=== PATIENT | male | born 1985 | race Caucasian/White ===

== ENCOUNTER 2024-01-25 22:22 | Emergency (ER) | payer OTHER, SELFPAY ==
[2024-01-25 22:23] VITALS: BP 128/77; PULSE 106; RESP 15; TEMP 37.1; O2SAT 96; BMI 31.0
--- NOTE | 2024-01-25 22:32 | CT_ITS ---
STUDY: CTA CHEST REASON FOR EXAM: Male, 38 years old patient with dyspnea, thoracic back pain, and fevers. Left-sided parathoracic pain. RADIATION DOSAGE (If Supplied By Facility): CTDIvol = ( 17.11 ) mGy, DLP = ( 437.87 ) mGycm TECHNIQUE: The examination was performed with the intravenous administration of IV 100 mL of Isovue-370. Post-processing of the angiographic images was performed, with multiplanar reformation and 3D reconstruction. Individualized dose optimization techniques were used for this CT. COMPARISON: Prior comparison studies are not available for review at this time. FINDINGS: Cardiac monitoring leads are present. Normal enhancement of the main pulmonary artery and right and left pulmonary arteries. There is limited enhancement of the bilateral peripheral pulmonary arteries. There is no demonstrated pulmonary embolism. There is prominence of the main pulmonary arteries with peripheral pulmonary vascular congestion. Normal thoracic aorta and visualized great vessels. There is no demonstrated aortic dissection. There is borderline cardiac cardiomegaly. Normal mediastinum. Normal hilar regions. Normal visualized trachea and bronchi. There is lingular airspace consolidation or atelectasis. There is left lower lobe airspace disease atelectasis. There is also right lower lobe groundglass attenuation. Lungs are underexpanded. There is a calcified nodule within the left upper lobe that may representing a granuloma. There appears to be small left-sided pleural effusion. Normal chest wall structures. Normal osseous structures. Normal visualized upper abdomen. CT/CTA Chest W/WO Contrast IMPRESSION: 1. No CTA demonstrated pulmonary embolism or arterial dissection. 2. Borderline cardiomegaly and pulmonary congestion. 3. Left lower lobe airspace consolidation and lingular airspace consolidation and atelectasis suggest pneumonia. Electronically Signed: Jenelle Mcintosh MD at 1:09 EDT ,
--- NOTE | 2024-01-25 22:35 | EX.ED.DYSGE1 ---
HPI <Dr. Mohan Flores DO - Last Filed: 01/26/24 11:41> History of Present Illness Chief Complaint: Chest Other Informant: patient and spouse/S.O. Narrative Narrative: Presents for evaluation of upper thoracic pain along with dyspnea and fevers. Symptoms started 2 weeks ago with reported fever. 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 He had a recurrent fever 3 days ago. Pain radiates around his back to the left side. Reports dyspnea. Denies cough. Denies vomiting or diarrhea. Denies urinary symptoms. Denies any loss of bowel or bladder control. Denies any pain down the legs. Denies IV drug use history. Last fever symptoms 3 days ago no fever today. Took 2 Flexeril's and ibuprofen at 9 PM no relief. heating pad is helping with comfort. Pain worse with sitting. Denies any allergies. Reports back pain is worse than when he dislocated his shoulder. Prior similar symptoms: No PFSH <Dr. Mohan Flores DO - Last Filed: 01/26/24 11:41> PFSH Medical History Back pain Shoulder pain Home Medications ?Medication ?Instructions ?Recorded ?Last Taken ?Type ascorbic acid (vitamin C) 1,000 mg 5,000 mg PO DAILY 01/26/24 Unknown History tablet,extended release (C Complex) azithromycin 250 mg tablet 250 mg PO DAILY 4 days #4 tabs 01/26/24 Unknown Rx (Zithromax) cholecalciferol (vitamin D3) 125 125 mcg PO DAILY 01/26/24 Unknown History mcg (5,000 unit) capsule hydrocodone-acetaminophen 5-325mg 1 tab PO Q4H PRN PRN Pain 4 days 01/26/24 Unknown Rx 5mg-325mg #14 TABLETS Allergy/AdvReac Type Severity Reaction Status Date / Time No Known Allergies Allergy Verified 01/25/24 22:26 Surgical History H/O shoulder surgery Social History Smoking Status: Never smoker alcohol intake: current alcohol intake frequency: a few times a week ROS <Dr. Mohan Le, DO - Last Filed: 01/26/24 11:41> ROS ED Constitutional Constitutional ED: Reports fever(s); Denies chills or sweats Eyes Eyes: Denies change in vision ENT ENT ED: Denies dysphagia or sore throat Cardiovascular Cardiovascular: Denies chest pain, leg edema, palpitations or racing heartbeat Respiratory/Chest Respiratory/Chest: Reports dyspnea; Denies cough or dyspnea on exertion Gastrointestinal Gastrointestinal: Denies abdominal pain, diarrhea, nausea or vomiting Genitourinary Genitourinary ED: Denies dysuria, hematuria or urinary frequency Musculoskeletal Musculoskeletal: Reports back pain; Denies extremity pain or neck pain Integumentary Denies rash or wounds Neurologic Neurologic: Denies headache(s), paresthesias or weakness EXAM <Dr. Mohan Flores, DO - Last Filed: 01/26/24 11:41> Physical Exam Const Vital Signs: 01/25/24 22:23 01/25/24 22:47 01/26/24 00:23 Temperature 98.7 F Temperature Source Temporal Pulse Rate 106 H 71 Respiratory Rate 15 17 Respiratory Effort Normal Non-Labored Blood Pressure 128/77 H 103/60 Blood Pressure Mean 94 74 Pulse Ox 96 96 Oxygen Delivery Method Room Air Room Air 01/26/24 01:27 Temperature 98 F Temperature Source Pulse Rate 96 Respiratory Rate 19 H Respiratory Effort Blood Pressure 98/55 L Blood Pressure Mean 69 Pulse Ox 94 Oxygen Delivery Method Positive well nourished and well developed Constitutional Narrative: Standing secondary to position of comfort. General Appearance ED: well developed HEENT Reports moist mucous membranes normocephalic and atraumatic Eyes EOMs intact bilaterally and conjunctivae normal General Eye ED: Yes normal appearance of both eyes Neck no lymphadenopathy and supple General: Negative for tenderness Chest Wall inspection of chest normal and palpation of chest normal Chest: Negative for tenderness Resp normal respiratory effort and normal air movement Resp Narrative: Symmetric breath sounds Effort and Inspection: symmetric chest movement; Negative for respiratory distress Cardio regular rhythm and no murmurs Rate: tachycardic Peripheral Pulses: pulses 2+ throughout GI normal to inspection, nondistended, normoactive bowel sounds and non-tender Palpation: Negative for guarding or rebound tenderness present Back/Spine no CVA tenderness Back/Spine Narrative: Tender palpation. Mid thoracic to the left side. There is erythema across his upper mid back for where heating pad was. Extremity normal to inspection General Extremety ED: Negative for edema or tenderness General Extremity: Negative for edema Neuro oriented x3 and no sensory deficits noted Sensorium / Orientation: awake and alert Skin Skin Narrative: No vesicular lesions noted in the back. <Dr. Jose Alberto Becerra MD - Last Filed: 01/26/24 01:26> Physical Exam Const Vital Signs: 01/25/24 22:23 01/25/24 22:47 01/26/24 00:23 Temperature 98.7 F Temperature Source Temporal Pulse Rate 106 H 71 Respiratory Rate 15 17 Respiratory Effort Normal Non-Labored Blood Pressure 128/77 H 103/60 Blood Pressure Mean 94 74 Pulse Ox 96 96 Oxygen Delivery Method Room Air Room Air 01/26/24 01:27 Temperature 98 F Temperature Source Pulse Rate 96 Respiratory Rate 19 H Respiratory Effort Blood Pressure 98/55 L Blood Pressure Mean 69 Pulse Ox 94 Oxygen Delivery Method MDM <Dr. Mohan Flores DO - Last Filed: 01/26/24 11:41> MDM MDM Narrative Medical decision making narrative: Interventions / MDM: Differential diagnosis: Diagnosis considered but do not suspect: My EKG interpretation: N/A Imaging independently reviewed and interpreted by myself: N/A External documents reviewed: N/A Test considered but not ordered:N/A ED course: Patient afebrile on arrival slight tachycardia. Reported fever. Denies IV drug use. Reports dyspnea due to pain. He is uncomfortable with movement. No cauda equina symptoms. Will check labs inflammatory markers and blood cultures with his reported fever. Will check CTA chest for evaluation of lungs along with thoracic spine region. Morphine ordered for pain control. Signed out to Dr. Becerra Re-evaluation: stable Disposition discussed with patient/family/significant other: patient and family. Case discussed with consulting clinician: N/A This note was generated with Bday dictation software. It may contain incorrect words, spelling, and punctuation that were not noted in checking the note before signing. Patient turned over to me from the afternoon physician Dr. Mohan Chamorro. He denied wanting and discussed with the patient the transfer of care and I reexamined the patient which is benign at this time. He has normal strength. Is mild redness to his back where he had a heating pad. Heart and lungs and abdomen are all benign. I will check his lab results and his imaging. Reassessed the patient. He has been given for morphine he still having pain and has had significant relief he will be given an additional 6 mg of morphine. Repeat exam patient doing well at 1 AM. His CAT scan of his chest recently returned and showed left lower lobe pneumonia with small pleural effusion. Patient's vital signs are stable. His pulse ox is 95% on room air. I discussed all test results with he and family. He is comfortable being discharged home and treated for pneumonia at home. His exam is unchanged. His pain is much better after second dose of morphine. The diagnosis and CAT scan are consistent with his history and physical findings. Patient started on Zithromax Z-Nam first dose given in the ER. Prescription sent to his pharmacy. Lab Data Labs: Laboratory Results - last 24 hr 01/25/24 22:40 WBC 17.9 H RBC 4.60 Hgb 13.2 Hct 39.0 L MCV 84.8 MCH 28.7 MCHC 33.8 RDW Std Deviation 36.5 RDW Coeff of Betsy 11.9 Plt Count 342 MPV 10.4 Immature Gran % (Auto) 0.800 Neut % (Auto) 87.7 H Lymph % (Auto) 4.6 L [place] % (Auto) 6.4 Eos % (Auto) 0.2 Baso % (Auto) 0.3 Absolute Neuts (auto) 15.7 H Absolute Lymphs (auto) 0.82 L Nucleated RBC % 0 ESR 27 H PT 15.5 H INR 1.2 APTT 29.6 Sodium 132 L Potassium 3.9 Chloride 98 Carbon Dioxide 27.0 Anion Gap 7 BUN 15 Creatinine 1.12 Estim Creat Clear Calc 103.85 Est GFR (MDRD) Af Amer 95 Est GFR (MDRD) Non-Af 79 BUN/Creatinine Ratio 13.4 Glucose 137 H Lactic Acid 1.2 Calcium 9.3 C-React Prot Ext Range 95.50 H Radiography Diagnostic Testing: Clinical Impression(s) from Imaging Studies Chest CTA 01/25/24 22:32 IMPRESSION: 1. No CTA demonstrated pulmonary embolism or arterial dissection. 2. Borderline cardiomegaly and pulmonary congestion. 3. Left lower lobe airspace consolidation and lingular airspace consolidation and atelectasis suggest pneumonia. Electronically Signed: Jenelle Mcintosh MD at 1:09 EDT , <Dr. Jose Alberto Becerra MD - Last Filed: 01/26/24 01:26> MDM MDM Narrative Medical decision making narrative: Interventions / MDM: Differential diagnosis: Diagnosis considered but do not suspect: My EKG interpretation: N/A Imaging independently reviewed and interpreted by myself: N/A External documents reviewed: N/A Test considered but not ordered:N/A ED course: Patient afebrile on arrival slight tachycardia. Reported fever. Denies IV drug use. Reports dyspnea due to pain. He is uncomfortable with movement. No cauda equina symptoms. Will check labs inflammatory markers and blood cultures with his reported fever. Will check CTA chest for evaluation of lungs along with thoracic spine region. Morphine ordered for pain control. Re-evaluation: stable Disposition discussed with patient/family/significant other: Case discussed with consulting clinician: N/A This note was generated with Bday dictation software. It may contain incorrect words, spelling, and punctuation that were not noted in checking the note before signing. Patient turned over to me from the afternoon physician Dr. Mohan Chamorro. He denied wanting and discussed with the patient the transfer of care and I reexamined the patient which is benign at this time. He has normal strength. Is mild redness to his back where he had a heating pad. Heart and lungs and abdomen are all benign. I will check his lab results and his imaging. Reassessed the patient. He has been given for morphine he still having pain and has had significant relief he will be given an additional 6 mg of morphine. Repeat exam patient doing well at 1 AM. His CAT scan of his chest recently returned and showed left lower lobe pneumonia with small pleural effusion. Patient's vital signs are stable. His pulse ox is 95% on room air. I discussed all test results with he and family. He is comfortable being discharged home and treated for pneumonia at home. His exam is unchanged. His pain is much better after second dose of morphine. The diagnosis and CAT scan are consistent with his history and physical findings. Patient started on Zithromax Z-Nam first dose given in the ER. Prescription sent to his pharmacy. Lab Data Attestation: I reviewed the patient's lab results. Lab results narrative: CBC is elevated with white count 17.9. H&H 13 and 39. Platelets 342. Sed rate is elevated at 27. His CRP is elevated at 95. PT/INR 15 and 1. PTT is 29. Electrolytes show a sodium of 132. Gap 7. Normal BUN of 15 creatinine 1.1. Glucose 137. Lactic acid is normal at 1.2. Labs: Laboratory Results - last 24 hr 01/25/24 22:40 WBC 17.9 H RBC 4.60 Hgb 13.2 Hct 39.0 L MCV 84.8 MCH 28.7 MCHC 33.8 RDW Std Deviation 36.5 RDW Coeff of Betsy 11.9 Plt Count 342 MPV 10.4 Immature Gran % (Auto) 0.800 Neut % (Auto) 87.7 H Lymph % (Auto) 4.6 L [place] % (Auto) 6.4 Eos % (Auto) 0.2 Baso % (Auto) 0.3 Absolute Neuts (auto) 15.7 H Absolute Lymphs (auto) 0.82 L Nucleated RBC % 0 ESR 27 H PT 15.5 H INR 1.2 APTT 29.6 Sodium 132 L Potassium 3.9 Chloride 98 Carbon Dioxide 27.0 Anion Gap 7 BUN 15 Creatinine 1.12 Estim Creat Clear Calc 103.85 Est GFR (MDRD) Af Amer 95 Est GFR (MDRD) Non-Af 79 BUN/Creatinine Ratio 13.4 Glucose 137 H Lactic Acid 1.2 Calcium 9.3 C-React Prot Ext Range 95.50 H Radiography Diagnostic Testing: Clinical Impression(s) from Imaging Studies Chest CTA 01/25/24 22:32 IMPRESSION: 1. No CTA demonstrated pulmonary embolism or arterial dissection. 2. Borderline cardiomegaly and pulmonary congestion. 3. Left lower lobe airspace consolidation and lingular airspace consolidation and atelectasis suggest pneumonia. Electronically Signed: Jenelle Mcintosh MD at 1:09 EDT , Discharge Plan Triage Chief Complaint: Chest Other ED Provider: Mohan Flores Dx/Rx/DC Orders Clinical Impression: Left lower lobe pneumonia, Pleurisy Instructions: ED Pleurisy, ED Pneumonia (Adult) Prescriptions: New azithromycin [Zithromax] 250 mg tablet 250 mg PO DAILY 4 Days Qty: 4 0RF Rx Instructions: start on day 2 of therapy hydrocodone-acetaminophen 5-325 mg tablet 1 tab PO Q4H PRN PRN (Reason: Pain) 4 Days Qty: 14 0RF No Action C Complex 1,000 mg tablet extended release 5,000 mg PO DAILY cholecalciferol (vitamin D3) 125 mcg (5,000 unit) capsule 125 mcg PO DAILY Primary Care Provider: Care Physician,No Primary Referrals: David Genao MD [Med Staff - Sexual Assault Counselor] - 3-5 Days if not improving Care Physician,No Primary [Primary Care Provider] - Activity Restrictions/Additional Instructions: You have a left lower lobe pneumonia. Plenty of fluids and rest. Off work next 3 days. Motrin and Tylenol for pain. Follow-up with a local physician to ensure you are improving. Return to the emergency department if you are feeling worse. You will be started on the antibiotic Zithromax which is typically used to treat pneumonia. First dose is 2 pills which you were given here. On Thursday you will start taking 1 pill a day for 4 more days. Print Language: Croatian Disposition Disposition: Home, Self Care Discharge Date/Time: 01/26/24 01:50
[2024-01-25] MEDS: 0.9% Normal Saline (500mL Bag) 500 ML 999 ML IV (22:48)
[2024-01-25] MEDS: Morphine 4 MG/ML Syringe IV (22:48)
[2024-01-25 23:03] LABS: Absolute Lymphocyte Count 0.82 X10^3/uL (0.83-4.51); Absolute Neutrophil Count 15.7 X10^3/uL (2.0-7.7); Basophil# 0.06 X10^3/uL; Basophil% 0.3 % (0-1); Eosinophil# 0.04 X10^3/uL; Eosinophils% 0.2 % (0-5); Hemoglobin 13.2 g/dL (13.0-16.5); Lymphocyte # 0.82 X10^3/ul (0.83-4.51); Lymphocyte % 4.6 % (19-41); Mean Corp Hgb Conc 33.8 g/dL (32-36); Mean Corpuscular Hgb 28.7 pg (27.0-32.0); Mean Corpuscular Volume 84.8 fL (80-94); Mean Platelet Vol. 10.4 fl (6.2-12.0); Monocyte# 1.15 X10^3/uL; Monocyte% 6.4 % (0-10); NRBC Flagged by Analyzer 0 % (0-5); Neutrophil # 15.65 X10^3/uL (2.7-7.7); Neutrophil % 87.7 % (47-70); Platelet Count 342 K/mm3 (150-450); RBC Distribution Width CV 11.9 % (11.6-14.6); RBC Distribution Width SD 36.5 fl (35.1-43.9); White Blood Count 17.9 K/mm3 (4.4-11.0)
[2024-01-25 23:06] LABS: International Normalized Ratio 1.2; Prothrombin Time (Protime)PT. 15.5 SECONDS (11.7-14.9)
[2024-01-25 23:08] LABS: Partial Thromboplast Time 29.6 Seconds (24.1-36.2)
[2024-01-25 23:14] LABS: Lactic Acid 1.2 mmol/L (0.4-1.9)
[2024-01-25 23:16] LABS: Anion Gap 7 (5-15); BUN 15 mg/dL (7-18); BUN/Creat Ratio 13.4 RATIO (10-20); Calcium,Total 9.3 mg/dL (8.5-10.1); Chloride 98 mmol/L (98-107); Creatinine, Serum 1.12 mg/dL (0.70-1.30); EST Glomerular Filtration Rate 79 mL/min (>60); Est Glom Filt Rate - Afr Amer 95 mL/min (>60); Estimated Creatinine Clearance 103.85 ml/min; Glucose 137 mg/dL (74-106); Potassium 3.9 mmol/L (3.5-5.1); Sodium Level 132 mmol/L (136-145)
[2024-01-25 23:19] LABS: Erythrocyte Sedimentation Rate 27 mm/hr (0-20)
[2024-01-25] MEDS: morphine 8 MG/ML Syringe 6 MG IV (23:25)
[2024-01-26 00:23] VITALS: BP 103/60; PULSE 71; RESP 17; O2SAT 96
[2024-01-26 01:27] VITALS: BP 98/55; PULSE 96; RESP 19; TEMP 36.6; O2SAT 94
[2024-01-26] MEDS: Azithromycin 250 MG Tablet 500 MG PO (01:29)
[2024-01-26] MEDS: Ketorolac 60 MG/2 ML Vial IM (01:45)
== END 2024-01-26 01:50 | disposition home or self-care (01) ==
PROVIDERS: Emergency Provider Emergency Medicine; Visit Provider Emergency Medicine
DX: J18.9 Pneumonia, unspecified organism (principal); R09.1 Pleurisy; Z79.899 Other long term (current) drug therapy
CPT/HCPCS: 71275; 80048; 83605; 85025; 85610; 85652; 85730; 86140; 87040; 96361; 96372; 96374; 96376; 99283; Q9967; A4216

== ENCOUNTER 2024-01-28 12:39 | Emergency (ER) | payer OTHER, SELFPAY ==
[2024-01-28 12:40] VITALS: BP 123/87; PULSE 101; RESP 20; TEMP 37.2; O2SAT 97; BMI 29.9
--- NOTE | 2024-01-28 13:39 | EDS_ITS ---
HPI History of Present Illness Chief Complaint: Shortness of Breath Informant: patient Narrative Narrative: Patient returns secondary to recent diagnosis of pneumonia and no significant proven symptoms. Patient was seen 3 days ago diagnosed with a left lower lobe pneumonia. He had a CTA of the chest that revealed no evidence of pulmonary embolism. He is currently on a Z-Nam as well as Soper for pain. He states his pain is significantly improved and he started coughing slightly last evening. He did note return of fever last night and this morning. He tried to follow-up with his primary care physician but they would not see him because he had not been there in more than a year. [facility] was then [facility] to [facility] and they would not see him and sent him to the emergency room. [facility] Medical History Back pain Shoulder pain Home Medications ?Medication ?Instructions ?Recorded ?Last Taken ?Type ascorbic acid (vitamin C) 1,000 mg 5,000 mg PO DAILY 01/26/24 Unknown History tablet,extended release (C Complex) azithromycin 250 mg tablet 250 mg PO DAILY 4 days #4 tabs 01/26/24 Unknown Rx (Zithromax) cholecalciferol (vitamin D3) 125 125 mcg PO DAILY 01/26/24 Unknown History mcg (5,000 unit) capsule hydrocodone-acetaminophen 5-325mg 1 tab PO Q4H PRN PRN Pain 4 days 01/26/24 Unknown Rx 5mg-325mg #14 TABLETS hydrocodone-acetaminophen 5-325mg 1 tab PO Q6H PRN PRN Pain 3 days 01/28/24 Unknown Rx 5mg-325mg #10 TABLETS levofloxacin 750 mg tablet 750 mg PO DAILY #4 tabs 01/28/24 Unknown Rx Allergy/AdvReac Type Severity Reaction Status Date / Time No Known Allergies Allergy Verified 01/28/24 12:40 Surgical History H/O shoulder surgery Social History Smoking Status: Never smoker alcohol intake: current alcohol intake frequency: a few times a week ROS ROS ED Constitutional Constitutional ED: Reports fever(s); Denies chills Eyes Eyes: Denies discharge from eye(s) ENT ENT ED: Denies discharge from eye(s), rhinorrhea or sore throat Cardiovascular Cardiovascular: Denies chest pain or palpitations Respiratory/Chest Respiratory/Chest: Reports cough and dyspnea Gastrointestinal Gastrointestinal: Denies abdominal pain, nausea or vomiting Genitourinary Genitourinary ED: Denies dysuria Musculoskeletal Musculoskeletal: Denies back pain or extremity pain Integumentary Denies Abrasions or rash Neurologic Neurologic: Denies headache(s) or weakness Psychiatric Psychiatric: Denies anxiety or depression Allergic/Immunologic Allergic/Immunologic ED: Denies lip swelling or urticaria EXAM Physical Exam Const Vital Signs: 01/28/24 12:40 01/28/24 13:49 01/28/24 13:54 Temperature 99 F 99 F Temperature Source Temporal Temporal Pulse Rate 101 H 73 Respiratory Rate 20 H 16 Respiratory Effort Short of Breath Respiratory Depth Normal Respiratory Pattern Normal Blood Pressure 123/87 H 128/79 H Blood Pressure Mean 99 95 Pulse Ox 97 99 Oxygen Delivery Method Room Air Room Air Room Air 01/28/24 15:11 Temperature Temperature Source Pulse Rate Respiratory Rate Respiratory Effort Respiratory Depth Respiratory Pattern Blood Pressure Blood Pressure Mean Pulse Ox Oxygen Delivery Method Room Air Positive well nourished and well developed General Appearance ED: well developed HEENT Reports moist mucous membranes Neck no lymphadenopathy Chest Wall inspection of chest normal and palpation of chest normal Resp normal respiratory effort and clear to auscultation bilaterally Cardio regular rate and regular rhythm GI non-tender Palpation: soft Extremity normal to inspection Neuro oriented x3 and no sensory deficits noted Motor Exam: strength 5/5 throughout Psych mental status grossly normal Skin no rashes or lesions noted MDM MDM MDM Narrative Medical decision making narrative: I did review records from patient's prior workup. Repeat chest x-ray will be obtained today to evaluate for progression or improvement of his infiltrate. Radiography Diagnostic Testing: Clinical Impression(s) from Imaging Studies Chest X-Ray 01/28/24 13:45 IMPRESSION: Consolidation in the left upper lobe as well as the lingular segment of the left upper lobe with blunting of the left costophrenic angle. Electronically Signed: Lokesh Marlow MD at 14:12 EDT , Treatment and Re-Evaluation :: 2 view chest x-ray per my interpretation reveals a large left-sided infiltrate. Radiology interpretation is reviewed and does document a consolidation left upper lobe as well as the lingular segment. With patient having been on antibiotics for several days already but now having recurrent fevers, I will switch him to Levaquin. EKG was obtained to evaluate QTc. EKG is sinus tach at 108 with a QTc of 447. No evidence of acute ischemia. Patient be given initial dose of Levaquin here and prescription will be sent to the pharmacy for him. He has not been hypoxic and is stable for outpatient treatment. Discharge Plan Triage Chief Complaint: Shortness of Breath Other Complaint: Meds Only ED Provider: Ary Vann Dx/Rx/DC Orders Clinical Impression: Pneumonia Instructions: ED Pneumonia (Adult) Prescriptions: New levofloxacin 750 mg tablet 750 mg PO DAILY Qty: 4 0RF hydrocodone-acetaminophen 5-325 mg tablet 1 tab PO Q6H PRN PRN (Reason: Pain) 3 Days Qty: 10 0RF No Action C Complex 1,000 mg tablet extended release 5,000 mg PO DAILY cholecalciferol (vitamin D3) 125 mcg (5,000 unit) capsule 125 mcg PO DAILY azithromycin [Zithromax] 250 mg tablet 250 mg PO DAILY 4 Days Qty: 4 0RF Rx Instructions: start on day 2 of therapy hydrocodone-acetaminophen 5-325 mg tablet 1 tab PO Q4H PRN PRN (Reason: Pain) 4 Days Qty: 14 0RF Primary Care Provider: Care Physician,No Primary Referrals: Sherry Middleton MD [Med Staff - Crawler Crane Operator] - 1 Week Care Physician,No Primary [Primary Care Provider] - Activity Restrictions/Additional Instructions: You have been given your initial dose of levofloxacin here. You will take 4 additional days at home with your next dose due tomorrow. Print Language: Montserratian Disposition Disposition: Home, Self Care
--- NOTE | 2024-01-28 13:45 | RAD_ITS ---
STUDY: X-RAY CHEST REASON FOR EXAM: Male, 38 years old. Pneumonia TECHNIQUE: PA and lateral views of the chest. COMPARISON: Comparison is made with prior CT scan of the thorax dated January 25, 2024. FINDINGS: Consolidation in left upper lobe and lingular segment of the left upper lobe. Blunting of the left costophrenic angle. Normal size heart. Normal mediastinum and anh. Normal visualized pulmonary arteries. Normal visualized aortic arch and descending thoracic aorta. Normal visualized thoracic spine. Normal visualized ribs, clavicles, and shoulders. There is no demonstrated abnormality of the visualized soft tissue structures of the upper abdomen. RAD/Chest PA and Lateral IMPRESSION: Consolidation in the left upper lobe as well as the lingular segment of the left upper lobe with blunting of the left costophrenic angle. Electronically Signed: Lokesh Marlow MD at 14:12 EDT ,
[2024-01-28 13:49] VITALS: BP 128/79; PULSE 73; RESP 16; TEMP 37.2; O2SAT 99
[2024-01-28 13:54] VITALS: O2SAT 99
--- NOTE | 2024-01-28 14:31 | EKG12_ITS ---
Test Reason : Blood Pressure : / mmHG Vent. Rate : 108 BPM Atrial Rate : 108 BPM P-R Int : 142 ms QRS Dur : 092 ms QT Int : 334 ms P-R-T Axes : 042 023 032 degrees QTc Int : 447 ms Sinus tachycardia Otherwise normal ECG Confirmed by EZEKIEL STORM, JALEEL ([id number]), offline editor BHARGAV LOPEZ ([id number]) on 02/01/2024 11:30:44 AM Referred By: Confirmed By:JALEEL FALCON MD
[2024-01-28] MEDS: levoFLOXacin 750 MG Tablet PO (15:13)
[2024-01-28 15:14] VITALS: BP 124/83; PULSE 95; RESP 18; TEMP 36.9; O2SAT 91
== END 2024-01-28 15:19 | disposition home or self-care (01) ==
PROVIDERS: Emergency Provider Emergency Medicine; Visit Provider Emergency Medicine
DX: J18.9 Pneumonia, unspecified organism (principal)
CPT/HCPCS: 71046; 93005; 99283

== ENCOUNTER → 2024-02-01 | Outpatient (CLI) | payer SELFPAY ==
[2024-02-01 16:51] LABS: Absolute Neutrophil Count 6.2 X10^3/uL (2.0-7.7); Basophil# 0.08 X10^3/uL; Basophil% 0.9 % (0-1); Eosinophil# 0.18 X10^3/uL; Lymphocyte % 18.7 % (19-41); Mean Corp Hgb Conc 32.5 g/dL (32-36); Mean Corpuscular Volume 86.2 fL (80-94); Monocyte# 0.78 X10^3/uL; Monocyte% 8.6 % (0-10); NRBC Flagged by Analyzer 0 % (0-5); Neutrophil # 6.22 X10^3/uL (2.7-7.7); Neutrophil % 68.5 % (47-70); Platelet Count 573 K/mm3 (150-450); RBC Distribution Width CV 11.9 % (11.6-14.6); RBC Distribution Width SD 37.5 fl (35.1-43.9); Red Blood Count 4.64 M/mm3 (4.6-6.2); White Blood Count 9.1 K/mm3 (4.4-11.0)
[2024-02-01 22:04] LABS: ALB/GLOB Ratio 0.6 RATIO (0.9-2.4); AST(SGOT) 22 U/L (15-37); Alanine Aminotransfer ALT/SGPT 42 U/L (16-61); Albumin, Serum 3.2 g/dL (3.2-5.0); Alkaline Phosphatase 100 U/L (45-117); Anion Gap 9 (5-15); BUN 11 mg/dL (7-18); BUN/Creat Ratio 9.6 RATIO (10-20); Chloride 101 mmol/L (98-107); Creatinine, Serum 1.15 mg/dL (0.70-1.30); EST Glomerular Filtration Rate 76 mL/min (>60); Est Glom Filt Rate - Afr Amer 92 mL/min (>60); Globulin 5.1 g/dL (2.2-4.2); Glucose 119 mg/dL (74-106); Protein, Total 8.3 g/dL (6.4-8.2); Sodium Level 137 mmol/L (136-145)
[2024-02-03 15:09] LABS: Mycoplasma Pneum AB IgG 243 U/mL (0-99); Mycoplasma pneum. AB IgM < 770 U/mL (0-769); QNTFERON TB Mitogen Value > 10.00 IU/mL (.); QNTFERON TB Nil Value 0 IU/mL (.); QNTFERON TB1+ Ag Value 0 IU/mL (.); QNTFERON TB2+ Ag Value 0 IU/mL (.); QNTIFERON TB Positive Criteria Negative (Negative)
== END | disposition home or self-care (01) ==
PROVIDERS: Referring Provider Nurse Practitioner Family; Visit Provider Nurse Practitioner Family
DX: J18.8 Other pneumonia, unspecified organism (principal); R05.9 Cough, unspecified; R61 Generalized hyperhidrosis; R53.83 Other fatigue
CPT/HCPCS: 36415; 80053; 85025; 86480; 86738

== ENCOUNTER → 2024-02-16 | Outpatient (CLI) | payer SELFPAY ==
--- NOTE | 2024-02-16 10:04 | RAD_ITS ---
STUDY: X-RAY CHEST REASON FOR EXAM: Male, 38 years old. Pneumonia follow-up. TECHNIQUE: Frontal and lateral views of the chest. COMPARISON: January 28, 2024 FINDINGS: Stable hyperinflation of the right lung. Near-complete clearing of the opacity present on the prior study in the left lower lobe and lingular segment of the left upper lobe. Residual linear scarring and blunting of the left costophrenic angle Normal size heart. Normal mediastinum and anh. Normal visualized pulmonary arteries. Normal visualized aortic arch and descending thoracic aorta. Normal visualized thoracic spine. Normal visualized ribs, clavicles, and shoulders. No abnormality of the visualized soft tissue structures of the upper abdomen. RAD/Chest PA and Lateral IMPRESSION: Marked improvement with clearing of left opacity with residual scarring/atelectasis and left pleural thickening. No acute or emergent finding. Electronically Signed: Kumar Whitehead MD at 10:56 EDT ,
== END | disposition home or self-care (01) ==
PROVIDERS: PCP Nurse Practitioner Family; Referring Provider Nurse Practitioner Family; Visit Provider Nurse Practitioner Family
DX: J18.8 Other pneumonia, unspecified organism (principal)
CPT/HCPCS: 71046

== ENCOUNTER → 2024-11-18 | Outpatient (CLI) | payer SELFPAY ==
--- NOTE | 2024-11-18 08:20 | CT_ITS ---
PROCEDURE: CHEST WITHOUT CONTRAST 11/18/2024 REASON FOR EXAM: LUNG NODULE TECHNIQUE: Chest CT without contrast. Coronal and Sagittal reconstruction series were provided. One or more dose reduction techniques were used (e.g., Automated exposure control, adjustment of the mA and/or kV according to patient size, use of iterative reconstruction technique COMPARISON: 07/27/2024 (no report for comparison) FINDINGS: Heart size is within normal limits. No significant pericardial effusion or coronary artery calcifications. Normal caliber thoracic aorta and pulmonary arteries. No suspicious adenopathy. Calcified left hilar lymph nodes consistent with old granulomatous disease. No significant findings in the visualized upper abdomen. Superficial soft tissues are within normal limits. Central airways are patent. No acute infiltrates, pleural effusion or pneumothorax. No suspicious pulmonary nodule or mass. Stable calcified pulmonary granuloma in the superior segment of the left lower lobe. No acute osseous abnormality. CT/Chest without Contrast IMPRESSION: No suspicious pulmonary nodule or mass. Reading Location: [facility]
== END | disposition home or self-care (01) ==
PROVIDERS: PCP Nurse Practitioner Family; Referring Provider Internal Medicine Critical Care Medicine; Visit Provider Internal Medicine Critical Care Medicine
DX: R91.1 Solitary pulmonary nodule (principal)
CPT/HCPCS: 71250